=== PATIENT | female | born 1985 | race Caucasian/White ===

== ENCOUNTER 2020-07-11 16:31 | Emergency (ER) | payer MEDICAID ==
[~2020-07-11] VITALS: Ht 170.2 cm; Wt 78.0 kg
[2020-07-11 16:50] VITALS: Ht 170.2 cm; Wt 78.0 kg
[2020-07-11 17:29] LABS: CARBON DIOXIDE 23.1 mmol/L (21-32); CHLORIDE SERUM 105 mmol/L (98-107); CREATININE SERUM 0.6 mg/dL (0.6-1.0); GFR1 > 60 mL/min; GLUCOSE SERUM 82 mg/dL (74-106); POTASSIUM SERUM 3.8 mmol/L (3.5-5.1); SODIUM SERUM 137 mmol/L (136-145)
[2020-07-11 17:30] LABS: BASOPHIL % 0.1 % (0-2); PLATELET COUNT 321 x10^3mcL (130-400); RED CELL DISTRIBUTION WIDTH 15.1 % (11.5-14.5)
[2020-07-11 17:34] LABS: ALKALINE PHOSPHATASE 65 U/L (46-116); ALT/SGPT 21 U/L (14-59); AST/SGOT 21 U/L (15-37); BILIRUBIN TOTAL 0.2 mg/dL (0.20-1.00); TOTAL PROTEIN, SERUM 6.2 g/dL (6.4-8.2)
[2020-07-11 17:36] LABS: ALBUMIN 2.7 g/dL (3.4-5.0)
[2020-07-11 17:51] LABS: microscopic required? NO
[2020-07-11 17:56] LABS: UA SPECIFIC GRAVITY >=1.030 (1.005-1.035); urine erythrocyte NEGATIVE (NEGATIVE)
[2020-07-11 18:55] VITALS: BP 97/68
== END 2020-07-11 18:55 | disposition home or self-care (01) ==
LOC: ED 16:31
PROVIDERS: Emergency Medicine
DX: O99.013 Anemia complicating pregnancy, third trimester (principal); I87.8 Other specified disorders of veins; Z3A.25 25 weeks gestation of pregnancy

== ENCOUNTER 2020-09-05 08:21 | Emergency (ER) | payer OTHER ==
[~2020-09-05] VITALS: Ht 170.2 cm; Wt 83.9 kg
[2020-09-05 08:31] VITALS: Ht 170.2 cm; Wt 83.9 kg
[2020-09-05 11:02] VITALS: BP 110/67
== END 2020-09-05 11:02 | disposition home or self-care (01) ==
LOC: ED 08:21
DX: O26.893 Other specified pregnancy related conditions, third trimester (principal); S29.011A Strain of muscle and tendon of front wall of thorax, initial encounter; X58.XXXA Exposure to other specified factors, initial encounter; Y93.89 Activity, other specified; Y92.89 Other specified places as the place of occurrence of the external cause; Y99.8 Other external cause status

== ENCOUNTER 2020-10-03 17:47 | Emergency (ER) | payer OTHER ==
[~2020-10-03] VITALS: Ht 170.2 cm; Wt 91.2 kg
[2020-10-03 18:19] VITALS: Ht 170.2 cm; Wt 91.2 kg
[2020-10-03 18:48] VITALS: BP 131/74
== END 2020-10-03 18:48 | disposition home or self-care (01) ==
LOC: ED 17:47
DX: O26.893 Other specified pregnancy related conditions, third trimester (principal); L03.317 Cellulitis of buttock; Z3A.38 38 weeks gestation of pregnancy